=== PATIENT | female | born 1980 | race Caucasian/White ===

== ENCOUNTER 2016-08-13 13:27 | Emergency (ER) | payer OTHER ==
--- NOTE | ~2016-08-13 | CR72 ---
[facility] A Service of [facility] & [facility] RADIOLOGY TEXT RESULTS PATIENT: MG GLASS LOCATION: [facility] : 78 UNIT #: [id number] AGE: [address]: Samuel ER Doctor SEX: F ORDER DR: [id number] [facility] [address] [place], [place] [address] [id number] E MR#: [id number] Acc #: [id number] NAME: MG GLASS. : 1980 SEX: F STUDY DATE/TIME: 08/13/2016 13:49 UNIT: [facility] ROOM: STUDY DESCRIPTION: CR Chest Single View Portable Attending Physician: Er Doctor Samuel Ordering Physician: Ed Zion Raymundo M.D. Primary Care Physician: Primary Care Physician No MEDICAL IMAGING REPORT This report is preliminary unless electronic signature is present EXAM Portable chest, 08/13/2016 HISTORY Chest pain for 2 days in mid sternum with shortness of breath, benign essential hypertension and asthma. FINDINGS A single AP portable view of the chest shows both lungs to be clear. The heart is normal in size. The mediastinal contour is normal. No significant bone abnormalities are seen. IMPRESSION Normal portable chest. Dictated by... Storm Jean-Baptiste M.D. THIS IS AN ELECTRONICALLY VERIFIED REPORT Storm Jean-Baptiste M.D. at 08/14/2016 2:09 PM MADI/veto TD: 08/14/2016 00:49 JOB #: [id number] MEDICAL IMAGING REPORT Page 1 of 1 COPY
--- NOTE | ~2016-08-13 | EKG ---
PATIENT: MG GLASS UNIT #: [id number] Ventricular Rate: 77 BPM Atrial Rate: 77 BPM P-R Interval: 136 ms QRS Duration: 84 ms Q-T Interval: 378 ms QTC Calculation(Bezet): 427 ms P [place]: 20 degrees Calculated R [place]: -6 degrees Calculated T [place]: 48 degrees Diagnosis Line: Normal sinus rhythm Diagnosis Line: Normal ECG Diagnosis Line: No previous ECGs available Diagnosis Line: Confirmed by ISELA LOVE MD ([id number]) on Diagnosis Line: 08/14/2016 11:07:06 AM INTERPRETING MD: IVAN GRAMAJO
[~2016-08-13 13:27] MED LIST: ADVAIR INH; ALBUTEROL17 GM INH; BENZONATATE PO; DARVOCET-N 1001 TA1 PO; FLEXERIL10 M1 PO; FLONASE 0.05% N16 G1; IBUPROFEN800 MG PO; LORTAB 10-5001 EACH PO; MEDROL4 MG/DOSE- PO; ZYRTEC10 M2 PO
[2016-08-13 14:28] LABS: BASOPHIL# 0.1 X10e3 (0-0.3); BASOPHIL% 0.6 % (0-2.5); EOSINOPHIL# 0.2 X10e3 (0-0.7); EOSINOPHIL% 1.7 % (0.0-7.0); HEMATOCRIT 40.7 % (35.0-45.0); HEMOGLOBIN 13.1 gm/dL (12.0-16.0); LYMPHOCYTE# 2.3 X10e3 (1.0-3.5); MEAN CELL VOLUME 87.1 FL (83-96); MEAN CORPUSCULAR HEMOGLOBIN 27.9 PG (28-34); MEAN CORPUSCULAR HGB CONC 32.1 g/dL (30-36); MEAN PLATELET VOLUME 11.4 FL (6.5-11.5); MONOCYTE# 0.6 X10e3 (0-1.0); MONOCYTE% 5.6 % (3.0-12.0); NEUTROPHIL# 6.9 X10e3 (1.5-7.1); NEUTROPHIL% 69.1 % (40-75); PLATELET COUNT 236 X10e3 (140-420); RED BLOOD COUNT 4.67 X10e (3.90-5.30); RED CELL DISTRIBUTION WIDTH 14.7 % (11.0-15.5)
[2016-08-13 14:32] LABS: POC - CKMB <1.0 ng/mL (0.0-7.9); POC - TROPONIN <0.05 ng/mL (<=0.05)
[2016-08-13 14:37] LABS: DIFF IND NO
[2016-08-13 14:53] LABS: PARTIAL THROMBOPLASTIN TIME 26.1 SECONDS (23.5-31.3); PROTHROMBIN TIME (PATIENT) 10.7 SECONDS (10.0-11.7)
[2016-08-13 15:01] LABS: ALBUMIN SERUM 3.6 g/dL (3.5-5.0); BILIRUBIN, DIRECT 0.1 mg/dL (0.0-0.2); BILIRUBIN,INDIRECT 0.6 mg/dL (0.0-0.9); BILIRUBIN,TOTAL 0.7 mg/dL (0.2-2.0); BUN/CREATININE RATIO 7.5; CALCIUM SERUM 8.7 mg/dL (8.4-10.2); CREATININE SERUM 0.8 mg/dL (0.6-1.4); GLOM FILT RATE Estimated 94.3 mL/min (>60); POTASSIUM 3.5 mmol/L (3.5-5.1)
== END 2016-08-13 16:52 | disposition left against medical advice (07) ==
LOC: CED 13:27
DX: Z53.21 Procedure and treatment not carried out due to patient leaving prior to being seen by health care provider (principal)
CPT/HCPCS: 71010; 80048; 80076; 82553; 84484; 85025; 85610; 85730; 93005

== ENCOUNTER 2016-08-17 11:03 | Emergency (ER) | payer OTHER ==
--- NOTE | ~2016-08-17 | EKG ---
PATIENT: MG GLASS UNIT #: [id number] Ventricular Rate: 75 BPM Atrial Rate: 75 BPM P-R Interval: 140 ms QRS Duration: 86 ms Q-T Interval: 374 ms QTC Calculation(Bezet): 417 ms P Armstrong: 24 degrees Calculated R Armstrong: 1 degrees Calculated T Armstrong: 45 degrees Diagnosis Line: Normal sinus rhythm Diagnosis Line: Normal ECG Diagnosis Line: When compared with ECG of 13-AUG-2016 13:30, Diagnosis Line: No significant change was found Diagnosis Line: Confirmed by ISELA LOVE MD ([id number]) on Diagnosis Line: 08/18/2016 8:00:09 AM INTERPRETING MD: IVAN GRAMAJO
--- NOTE | ~2016-08-17 | CT16 ---
[facility] A Service of [facility] [place] [facility] & [facility] RADIOLOGY TEXT RESULTS PATIENT: MG GLASS LOCATION: [facility] : 78 UNIT #: [id number] AGE: [address]: Bethany Emery MD SEX: F ORDER DR: [id number] [facility] [address] [place], [place] [address] [id number] MR#: [id number] Acc #: [id number] NAME: MG GLASS. : 1980 SEX: F STUDY DATE/TIME: 08/17/2016 14:25 UNIT: [facility] ROOM: STUDY DESCRIPTION: CT Angio Chest for PE Attending Physician: Bethany Emery M.D. Ordering Physician: Bethany Emery M.D. Primary Care Physician: Van Colbert M.D. MEDICAL IMAGING REPORT This report is preliminary unless electronic signature is present EXAM CT angiography chest for PE 08/17/2016 HISTORY The history is short of air. Hurts to breathe. Duration 4 days. Asthma. Chronic back pain. TECHNIQUE CT pulmonary angiography performed with intravenous menstruation 80 mL Isovue-370. Three-dimensional reconstructions performed through pulmonary arteries. This CT exam was performed with one or more of the following radiation dose reduction techniques: automatic exposure control, adjustment of mA and/or kV according to patient size, and iterative reconstruction. COMPARISON STUDIES No comparison studies. FINDINGS Indeterminate mixed density right thyroid lobe nodule. It probably has some cystic and solid components and measures up to about 2.6 cm in maximum diameter. If not previously evaluated, consider assessment with thyroid ultrasound and if clinically warranted, fine-needle aspiration sampling. Heterogeneous left thyroid lobe without dominant nodule seen. No axillary, mediastinal or hilar adenopathy. Mild cardiac enlargement. No pleural effusions. Visualized portions of liver unremarkable. Prior cholecystectomy. No biliary obstruction. Spleen, pancreas, adrenal glands, upper renal poles unremarkable. No upper abdominal adenopathy. Small hiatal hernia. Remainder of visualized esophagus and stomach unremarkable. Visualized small bowel and colon unremarkable. Pulmonary parenchyma shows no acute pulmonary disease. No suspicious [facility] A Service of [facility] [place] [facility] & [facility] RADIOLOGY TEXT RESULTS PATIENT: MG GLASS LOCATION: [facility] #: [id number] : 78 UNIT #: [id number] AGE: [address]: Bethany Emery MD SEX: F ORDER DR: nodule. No PE. No evidence of aortic aneurysm or dissection. The visualized aortic branch vessels are patent. Bony structures show no acute abnormality. IMPRESSION 1. No PE. No aortic aneurysm or dissection. 2. Mild cardiac enlargement. 3. Lungs clear. 4. Visualized upper abdomen notable only for postoperative changes of cholecystectomy. 5. Heterogeneous indeterminate nodule right adrenal gland measuring up to approximately 2.6 cm. If not previously evaluated, best further characterized with ultrasound. Depending on ultrasound appearance, the nodule is probably amenable to image-guided aspiration sampling. Dictated by... Santiago Hernandez M.D. THIS IS AN ELECTRONICALLY VERIFIED REPORT Santiago Hernandez M.D. at 08/18/2016 9:39 PM Tess TD: 08/17/2016 16:49 JOB #: [id number] MEDICAL IMAGING REPORT Page 1 of 1 COPY
[2016-08-17 12:32] LABS: BASOPHIL# 0.1 X10e3 (0-0.3); BASOPHIL% 0.6 % (0-2.5); EOSINOPHIL# 0.1 X10e3 (0-0.7); EOSINOPHIL% 1.2 % (0.0-7.0); HEMATOCRIT 39.2 % (35.0-45.0); HEMOGLOBIN 12.7 gm/dL (12.0-16.0); LYMPHOCYTE# 1.9 X10e3 (1.0-3.5); LYMPHOCYTE% 22.1 % (17.0-45.0); MEAN CELL VOLUME 86.1 FL (83-96); MEAN CORPUSCULAR HGB CONC 32.5 g/dL (30-36); MEAN PLATELET VOLUME 10.8 FL (6.5-11.5); MONOCYTE# 0.5 X10e3 (0-1.0); MONOCYTE% 5.6 % (3.0-12.0); NEUTROPHIL# 6.1 X10e3 (1.5-7.1); NEUTROPHIL% 70.5 % (40-75); PLATELET COUNT 222 X10e3 (140-420); RED BLOOD COUNT 4.55 X10e (3.90-5.30); RED CELL DISTRIBUTION WIDTH 14.6 % (11.0-15.5); WHITE BLOOD COUNT 8.7 X10e3 (4.0-10.5)
[2016-08-17 12:36] LABS: DIFF IND NO
[2016-08-17 12:45] LABS: POC - CKMB <1.0 ng/mL (0.0-7.9); POC - TROPONIN <0.05 ng/mL (<=0.05)
[2016-08-17 12:51] LABS: PARTIAL THROMBOPLASTIN TIME 26.6 SECONDS (23.5-31.3); PROTHROMBIN TIME (PATIENT) 10.8 SECONDS (10.0-11.7)
[2016-08-17 13:00] LABS: ALBUMIN SERUM 3.7 g/dL (3.5-5.0); BILIRUBIN, DIRECT 0.1 mg/dL (0.0-0.2); BILIRUBIN,INDIRECT 0.7 mg/dL (0.0-0.9); BILIRUBIN,TOTAL 0.8 mg/dL (0.2-2.0); BUN/CREATININE RATIO 7.14; CALCIUM SERUM 8.4 mg/dL (8.4-10.2); CREATININE SERUM 0.7 mg/dL (0.6-1.4); GLOM FILT RATE Estimated 110.7 mL/min (>60); POTASSIUM 3.7 mmol/L (3.5-5.1); PROTEIN TOTAL SERUM 7.1 g/dL (6.0-8.3)
== END 2016-08-17 15:35 | disposition home or self-care (01) ==
LOC: CED 11:03
PROVIDERS: Emergency Medicine
DX: R07.89 Other chest pain (principal); I10 Essential (primary) hypertension; J45.909 Unspecified asthma, uncomplicated; Z90.49 Acquired absence of other specified parts of digestive tract; Z88.5 Allergy status to narcotic agent
CPT/HCPCS: 36415; 71275; 80048; 80076; 82553; 84484; 84703; 85025; 85610; 85730; 93005; 96374; 99285; J1885; Q9967